=== PATIENT | female | born 1970 | race Caucasian/White ===

== ENCOUNTER 2018-01-20 19:44 | Inpatient (IN) | payer SELFPAY ==
[2018-01-20 20:20] LABS: Absolute Lymphocytes (CBC) 4.4 K/uL (0.7-4.9); Absolute Monocytes 1.3 K/uL (0.1-1.3); Absolute Neutrophil 8.7 K/uL (1.8-8.0); Basophils % 0.5 % (0-1.3); Hematocrit 32.6 % (36.0-45.0); Lymphocytes % 30.4 % (15.3-44.8); MCH 30.4 pg (27.0-35.0); MCV 92.7 fL (80-100); MPV 8.3 fL (7.6-11.3); Monocytes % 8.8 % (3.3-12.3); RBC Red Blood Cell Count 3.52 M/uL (3.86-4.86)
[2018-01-20 20:23] LABS: Protime INR 0.99
--- NOTE | 2018-01-20 20:39 | RAD REPORT ---
EXAM DESCRIPTION: CT - Head Brain Wo Cont - 01/20/2018 8:33 pm CLINICAL HISTORY: Declining state;Confused Drowsiness COMPARISON: No comparisons TECHNIQUE: All CT scans are performed using dose optimization technique as appropriate and may inclu de automated exposure control or mA/KV adjustment according to patient size. FINDINGS: No intracranial hemorrhage, hydrocephalus or extra-axial fluid collection.No areas of brai n edema or evidence of midline shift. The paranasal sinuses and mastoids are clear. The calvarium is intact. IMPRESSION: No acute intracranial abnormality.
[2018-01-20 20:42] LABS: ALT/SGPT 25 U/L (12-78); AST/SGOT 17 U/L (15-37); Albumin 3.6 g/dL (3.4-5.0); Alkaline Phosphatase 84 U/L (45-117); BUN Blood Urea Nitrogen 12 mg/dL (7-18); Bicarbonate 26 mmol/L (21-32); Bilirubin Direct < 0.1 mg/dL (0-0.2); Bilirubin Total 0.3 mg/dL (0.2-1.0); Glucose Level 136 mg/dL (74-106); Lipase 282 U/L (73-393); Magnesium 1.9 mg/dL (1.8-2.4); NT PRO-BNP 21 pg/mL (<125); Potassium 4.5 mmol/L (3.5-5.1); Protein, Total 6.9 g/dL (6.4-8.2); Sodium Level 137 mmol/L (136-145); Troponin (Emerg Dept Use Only) < 0.02 ng/mL (0.0-0.045)
--- NOTE | 2018-01-20 20:46 | RAD REPORT ---
EXAM DESCRIPTION: RAD - Chest Single View - 01/20/2018 8:41 pm CLINICAL HISTORY: COUGH Chest pain. COMPARISON: No comparisons FINDINGS: Portable technique limits examination quality. The lungs are underinflated resulting in vascular crowding. The heart is normal in size. No displaced fractures. IMPRESSION: Underinflated lungs.
[2018-01-20 21:02] LABS: Barbiturates POSITIVE (NEGATIVE); Benzodiazepines NEGATIVE (NEGATIVE); Cocaine NEGATIVE (NEGATIVE); METHAMPHETAM NEGATIVE (NEGATIVE); Methadone NEGATIVE (NEGATIVE); Opiates NEGATIVE (NEGATIVE); Phencyclidine POSITIVE (NEGATIVE); THC Cannibis NEGATIVE (NEGATIVE)
[2018-01-20] MEDS ORDERED: NA CHLORIDE 0.9% 1,000 ML ONE (21:02)
[2018-01-20] MEDS ORDERED: THIAMINE 200 MG/2 ML INJ ONE (21:02)
[2018-01-20 21:04] LABS: Urine Blood NEGATIVE (NEG); Urine Glucose NEGATIVE (NEG); Urine Protein NEGATIVE (NEG); Urine Specific Gravity 1.015 (1.005-1.030)
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
--- NOTE | 2018-01-20 21:17 | EDPHYS ---
Physician Documentation [facility] Name: Camilla Mcintyre Age: 47 yrs Sex: Female : 1970 Arrival Date: 01/20/2018 Time: 19:48 Bed 3 Private MD: ED Physician Justin Blum HPI: 01/20 20:05 This 47 yrs old Female presents to ER via Unassigned with complaints of jacy Unresponsive. 20:05 overdose. The patient presents with decreased responsiveness. Onset: The jacy symptoms/episode began/occurred just prior to arrival. Possible causes: drug use. Associated signs and symptoms: The patient has no apparent associated signs or symptoms. Patient's baseline: Neuro:. Severity of symptoms: At their worst the symptoms were mild in the emergency department the symptoms are unchanged. THROUGH OPERATOR: 21:57 LMP N/A - pt unresponsive unable to answer question ea - Immunization history:: Adult Immunizations unknown. - Social history:: Smoking status: unknown. - Family history:: not pertinent. - Ebola Screening: : Unable to complete screening because. ROS: 20:05 Constitutional: Negative for fever, chills, and weight loss, Eyes: Negative for injury, jacy pain, redness, and discharge, ENT: Negative for injury, pain, and discharge, Neck: Negative for injury, pain, and swelling, Cardiovascular: Negative for chest pain, palpitations, and edema, Respiratory: Negative for shortness of breath, cough, wheezing, and pleuritic chest pain, Abdomen/GI: Negative for abdominal pain, nausea, vomiting, diarrhea, and constipation, Back: Negative for injury and pain, : Negative for injury, bleeding, discharge, and swelling, MS/Extremity: Negative for injury and deformity, Skin: Negative for injury, rash, and discoloration, Psych: Negative for depression, anxiety, suicide ideation, homicidal ideation, and hallucinations, Allergy/Immunology: Negative for hives, rash, and allergies, Endocrine: Negative for neck swelling, polydipsia, polyuria, polyphagia, and marked weight changes, Hematologic/Lymphatic: Negative for swollen nodes, abnormal bleeding, and unusual bruising. 20:05 Neuro: Positive for altered mental status. Exam: 20:05 Constitutional: This is a well developed, well nourished patient who is awake, alert, jacy and in no acute distress. Head/Face: Normocephalic, atraumatic. Eyes: Pupils equal round and reactive to light, extra-ocular motions intact. Lids and lashes normal. Conjunctiva and sclera are non-icteric and not injected. Cornea within normal limits. Periorbital areas with no swelling, redness, or edema. ENT: Nares patent. No nasal discharge, no septal abnormalities noted. Tympanic membranes are normal and external auditory canals are clear. Oropharynx with no redness, swelling, or masses, exudates, or evidence of obstruction, uvula midline. Mucous membranes moist. Neck: Trachea midline, no thyromegaly or masses palpated, and no cervical lymphadenopathy. Supple, full range of motion without nuchal rigidity, or vertebral point tenderness. No Meningismus. Chest/axilla: Normal chest wall appearance and motion. Nontender with no deformity. No lesions are appreciated. Cardiovascular: Regular rate and rhythm with a normal S1 and S2. No gallops, murmurs, or rubs. Normal PMI, no JVD. No pulse deficits. Respiratory: Lungs have equal breath sounds bilaterally, clear to auscultation and percussion. No rales, rhonchi or wheezes noted. No increased work of breathing, no retractions or nasal flaring. Abdomen/GI: Soft, non-tender, with normal bowel sounds. No distension or tympany. No guarding or rebound. No evidence of tenderness throughout. Back: No spinal tenderness. No costovertebral tenderness. Full range of motion. Female : Normal external genitalia. Skin: Warm, dry with normal turgor. Normal color with no rashes, no lesions, and no evidence of cellulitis. MS/ Extremity: Pulses equal, no cyanosis. Neurovascular intact. Full, normal range of motion. Psych: Awake, alert, with orientation to person, place and time. Behavior, mood, and affect are within normal limits. 20:05 Neuro: Orientation: unable to test, Mentation: slow to respond, confused, Memory: unable to test, Cranial nerves: grossly normal, Motor: moves all fours, Gait: not tested. seizure activity, is not displayed by the patient. Vital Signs: 19:50 BP 109 / 74; Pulse 79; Resp 16; Temp 97.6(TE); Pulse Ox 95% on R/A; Weight 88.9 kg; ea Height 5 ft. 2 in. (157.48 cm); 21:21 BP 102 / 71; Pulse 77; Resp 16; Pulse Ox 97% on R/A; mt 22:39 BP 104 / 72; Pulse 74; Resp 16; Pulse Ox 98% on R/A; mt 23:30 BP 108 / 73; Pulse 80; Resp 17; Temp 97.8; Pulse Ox 100% ; 01/21 00:35 BP 102 / 64; Pulse 79; Resp 16; Temp 97.6(TE); Pulse Ox 99% on 2 lpm NC; 01/20 19:50 Body Mass Index 35.85 (88.90 kg, 157.48 cm) ea MDM: 01/20 20:00 Patient medically screened. [facility] 20:09 Data reviewed: vital signs, nurses notes, lab test result(s), EKG, radiologic studies, [facility] CT scan, plain films. 01/20 20:03 Order name: Basic Metabolic Panel [facility] 01/20 20:03 Order name: CBC with Diff; Complete Time: 21:11 [facility] 01/20 20:03 Order name: LFT's; Complete Time: 21:11 [facility] 01/20 20:03 Order name: Magnesium; Complete Time: 21:11 [facility] 01/20 20:03 Order name: NT PRO-BNP; Complete Time: 21:11 [facility] 01/20 20:03 Order name: PT-INR; Complete Time: 21:11 [facility] 01/20 20:03 Order name: Troponin (emerg Dept Use Only); Complete Time: 21:11 [facility] 01/20 20:03 Order name: Acetaminophen; Complete Time: 21:11 [facility] 01/20 20:03 Order name: ETOH Level; Complete Time: 21:11 [facility] 01/20 20:03 Order name: Ptt, Activated; Complete Time: 21:11 [facility] 01/20 20:03 Order name: Salicylate; Complete Time: 21:11 [facility] 01/20 20:03 Order name: Urine Drug Screen; Complete Time: 21:11 [facility] 01/20 20:03 Order name: Lipase; Complete Time: 21:11 [facility] 01/20 20:05 Order name: Basic Metabolic Panel; Complete Time: 21:11 EDMS 01/20 20:03 Order name: XRAY Chest (1 view); Complete Time: 21:11 [facility] 01/20 20:03 Order name: EKG; Complete Time: 20:05 [facility] 01/20 20:03 Order name: Cardiac monitoring; Complete Time: 22:00 [facility] 01/20 20:03 Order name: EKG - Nurse/Tech; Complete Time: 22:00 [facility] 01/20 20:03 Order name: IV Saline Lock; Complete Time: 22:00 [facility] 01/20 20:03 Order name: Labs collected and sent; Complete Time: 22:00 [facility] 01/20 20:03 Order name: O2 Per Protocol; Complete Time: 22:12 [facility] 01/20 20:03 Order name: O2 Sat Monitoring; Complete Time: 22:13 [facility] 01/20 20:03 Order name: Urine Dipstick-Ancillary (obtain specimen); Complete Time: 00:33 [facility] 01/20 20:03 Order name: CT Head Brain wo Cont; Complete Time: 21:11 [facility] 01/20 20:03 Order name: Jeffery; Complete Time: 21:50 [facility] 01/20 20:23 Order name: Urine Dipstick--Ancillary (enter results) tx 01/20 20:25 Order name: Urine Dipstick-Ancillary [facility] 01/20 20:10 Order name: Blood Glucose Level; Complete Time: 22:08 [facility] Administered Medications: 20:30 Drug: NS 0.9% 1000 ml Route: IV; Rate: 1 bolus; Site: right antecubital; ea 22:30 Follow up: Response: No adverse reaction; IV Status: Completed infusion ea 20:30 Drug: Thiamine 100 mg Route: IV; Rate: bolus; Site: right antecubital; ea 21:00 Follow up: Response: No adverse reaction; IV Status: Completed infusion ea Disposition: 01/20/18 21:16 Hospitalization ordered by Ismael Butler for Inpatient Admission. Preliminary diagnosis are Abuse of non-psychoactive substances, Altered mental status, unspecified. - Bed requested for Intensive Care Unit. - Status is Inpatient Admission. ea - Condition is Stable. - Problem is new. - Symptoms have improved. UTI on Admission? No Signatures: Dispatcher [employer] Meagan Larsen RN RN kl Anderson, Corey, MD MD cha Antunez, Elena, RN RN ea Corrections: (The following items were deleted from the chart) 23:11 21:16 Hospitalization Ordered by Ismael Butler MD for Inpatient Admission. Preliminary oniel diagnosis is Abuse of non-psychoactive substances; Altered mental status, unspecified. Bed requested for Intensive Care Unit. Status is Inpatient Admission. Condition is Stable. Problem is new. Symptoms have improved. UTI on Admission? No. jacy 23:39 20:03 NG Tube ordered. jacy ea 01/21 01:44 01/20 23:11 01/20/2018 21:16 Hospitalization Ordered by Ismael Butler MD for Inpatient ea Admission. Preliminary diagnosis is Abuse of non-psychoactive substances; Altered mental status, unspecified. Bed requested for Intensive Care Unit. Status is Inpatient Admission. Condition is Stable. Problem is new. Symptoms have improved. UTI on Admission? No. kl
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
[2018-01-21] MEDS ORDERED: ONDANSETRON 4 MG/2 ML VIAL IV PRN (01:15)
[2018-01-21] MEDS ORDERED: ACETAMINOPHEN 500 MG TAB PO PRN (01:15)
[2018-01-21] MEDS ORDERED: IPRATROPIUM BROM 0.5MG/2.5ML NEB PRN (01:15)
[2018-01-21] MEDS ORDERED: ALBUTEROL 2.5 MG/3 ML NEB SOL NEB PRN (01:15)
[2018-01-21] MEDS: NA CHLORIDE 0.9% 1,000 ML IV SCH ×2 (02:11→09:15)
[2018-01-21 06:53] LABS: Absolute Lymphocytes (CBC) 2.9 K/uL (0.7-4.9); Absolute Monocytes 0.9 K/uL (0.1-1.3); Absolute Neutrophil 11.4 K/uL (1.8-8.0); Basophils % 0.3 % (0-1.3); Eosinophils % 0.4 % (0-4.4); MCH 30.8 pg (27.0-35.0); MPV 8.3 fL (7.6-11.3); RBC Red Blood Cell Count 4.24 M/uL (3.86-4.86)
[2018-01-21 07:05] LABS: BUN Blood Urea Nitrogen 7 mg/dL (7-18); Bicarbonate 27 mmol/L (21-32); Glucose Level 106 mg/dL (74-106); Potassium 4.3 mmol/L (3.5-5.1); Sodium Level 143 mmol/L (136-145)
--- NOTE | 2018-01-21 07:43 | EKG ---
Test Date: 2018-01-20 Test Time: 19:47:11 Service Desk Technician: FEI MEASUREMENT RESULTS: Intervals: Rate: 79 CT: 202 QRSD: 108 QT: 394 QTc: 451 [place]: P: 58 CT: 202 QRS: 19 T: 50 INTERPRETIVE STATEMENTS: Normal sinus rhythm Possible Left atrial enlargement Incomplete right bundle branch block Borderline ECG No previous ECG available for comparison Electronically Signed On 01-21-18 07:42:43 [employer] by Phil Boss
[2018-01-21] MEDS: ENOXAPARIN 40 MG/0.4 ML SQ SCH (08:29)
[2018-01-21] MEDS ORDERED: DICYCLOMINE HCL 10 MG CAP PO PRN (12:52)
[2018-01-21] MEDS ORDERED: GLUCAGON 1 MG/VIAL IM PRN (14:06)
[2018-01-21] MEDS ORDERED: D50W 25 GM/50 ML SYRINGE IV PRN (14:06)
--- NOTE | 2018-01-21 14:51 | P.PN ---
Subjective Date of Service: 01/21/18 Chief Complaint: Acute encephalopathy PATIENT SEEN AND EXAMINED AT BEDSIDE WITH RN. CHART REVIEWED. CASE DISCUSSED WITH PATIENT AT BEDSIDE. OVERNIGHT NO COMPLAINTS TO OFFER. HAS BEEN DOING WELL OVERALL. Review of Systems 10-point ROS is otherwise unremarkable Physical Examination - Vital Signs Temperature: 97.2 F Blood Pressure: 132/80 Pulse: 100 Respirations: 17 Pulse Ox (%): 98 - Physical Exam General: Alert, In no apparent distress HEENT: Atraumatic, PERRLA, EOMI Neck: Supple, JVD not distended Respiratory: Clear to auscultation bilaterally, Normal air movement Cardiovascular: Regular rate/rhythm, Normal S1 S2 Gastrointestinal: Normal bowel sounds, No tenderness Musculoskeletal: No tenderness Integumentary: No rashes Neurological: Normal speech, Normal tone, Normal affect Lymphatics: No axilla or inguinal lymphadenopathy - Studies Laboratory Data (last 24 hrs) 01/20/18 19:50: PT 11.7, INR 0.99, APTT 31.7 01/20/18 19:50: WBC 14.6 H, Hgb 10.7 L, Hct 32.6 L, Plt Count 265 01/20/18 19:50: Sodium 137, Potassium 4.5, BUN 12, Creatinine 0.80, Glucose 136 H, Magnesium 1.9, Total Bilirubin 0.3, AST 17, ALT 25, Alkaline Phosphatase 84, Lipase 282 Medications List Reviewed: Yes Assessment And Plan - Current Problems (Diagnosis) (1) Drug overdose Onset Date: 01/21/18 Current Visit: Yes Status: Acute Plan: Unintentional drug overdose. Patient took Ativan, promethazine, Seroquel, Xanax for pain and anxiety and had altered mental status and was found in her car by the EMS -Will monitor closely for 24-48 hr. -poison control called and notified about the overdose. -transferred to the floor at this time Qualifiers: Encounter type: initial encounter Injury intent: undetermined intent Qualified Code(s): T50.904A - Poisoning by unspecified drugs, medicaments and biological substances, undetermined, initial encounter - Plan Transfer to the floor at this time. Observe for another 24-48 hr for any adverse effect of the overdose medication. Anticipate discharge soon. Patient educated extensively regarding the plan of care is well. Discharge Plan: Home Plan to discharge in: 24 Hours - Code Status/Comfort Care Code Status Assessed: Yes Critical Care: No
[2018-01-21] MEDS: INSULIN -REGULAR HUMAN 50 UNIT/0.5 ML ML IV SCH ×2 (16:30→20:06)
[2018-01-21] MEDS: CARVEDILOL 12.5 MG TAB PO SCH (20:05)
[2018-01-22] MEDS: INSULIN -REGULAR HUMAN 50 UNIT/0.5 ML ML IV SCH ×2 (07:30→11:28)
[2018-01-22] MEDS: ENOXAPARIN 40 MG/0.4 ML SQ SCH (08:11)
[2018-01-22] MEDS: CARVEDILOL 12.5 MG TAB PO SCH (08:11)
[2018-01-22] MEDS ORDERED: LOSARTAN POTASSIUM 50 MG TABLET PO SCH (09:00)
[2018-01-22] MEDS ORDERED: AMLODIPINE 5 MG TAB PO SCH (09:00)
--- NOTE | 2018-01-22 10:11 | P.SSS ---
Patient History Date of Service: 01/22/18 Reason for admission: Acute encephalopathy History of Present Illness: Ms [place]inty[place] woman who was found in a vehicle [place] a ditch by the customs and border protection officer. Her mentation was altered, EMS was called, they found a bottle of Xanax in the vehicle. The patient received Narcan, but did not change her mentation. When the patient arrived to ED, she was alert and oriented x1, then gravelly, the patient became more obtunded difficult to arouse. Lab work remarkable for leukocytosis, she is a febrile, CT head showed no acute abnormalities, chest-x-ray no acute abnormalities either. Toxicology screen was positive for barbiturates PCP. Allergies Sulfa (Sulfonamide Antibiotics) Allergy (Verified 01/21/18 02:31) Hives Home Medications: Amlodipine [Norvasc*] 5 mg PO DAILY 01/21/18 Butalb/Acetaminophen/Caffeine [Fioricet 50-300-40 mg Capsule] 1 cap PO BID PRN 01/21/18 Carvedilol 12.5 mg PO BID 01/21/18 Cyclobenzaprine [Flexeril*] 10 mg PO TID PRN 01/21/18 Dicyclomine [Bentyl*] 10 mg PO BID PRN 01/21/18 LORazepam [Ativan*] 1 mg PO TID PRN 01/21/18 Liraglutide [Victoza 2-Wally] 1.8 mg SQ DAILY 01/21/18 Losartan Potassium 50 mg PO DAILY 01/21/18 Metformin HCl 500 mg PO BID 01/21/18 Promethazine HCl 25 mg PO BID PRN 01/21/18 Quetiapine Fumarate [Seroquel] 50 mg PO BEDTIME 01/21/18 Zolpidem Tartrate [Ambien] 10 mg PO BEDTIME 01/21/18 lamoTRIgine [Lamictal*] 25 mg PO BID 01/21/18 - Past Medical/Surgical History Diabetic: Yes -: bipolar -: major depression disorder -: previous suicidal thoughts -: hypertension -: NIDDM -: cholecystecomy - Family History Family History: Reviewed- Non-Contributory - Family History Father -: Hypertension - Social History Smoking Status: Unknown if ever smoked Alcohol use: Yes CD- Drugs: No Caffeine use: No Place of Residence: Home Review of Systems 10-point ROS is otherwise unremarkable Physical Examination - Vital Signs Temperature: 97.5 F Blood Pressure: 136/72 Pulse: 91 Respirations: 16 Pulse Ox (%): 99 - Physical Exam General: Alert, In no apparent distress HEENT: Atraumatic, PERRLA, Mucous membr. moist/pink, EOMI, Sclerae nonicteric Neck: Supple, 2+ carotid pulse no bruit, No LAD, Without JVD or thyroid abnormality Respiratory: Clear to auscultation bilaterally, Normal air movement Cardiovascular: Regular rate/rhythm, Normal S1 S2 Gastrointestinal: Normal bowel sounds, No tenderness Musculoskeletal: No tenderness Integumentary: No rashes Neurological: Normal gait, Normal speech, Normal strength at 5/5 x4 extr, Normal tone, Normal affect Lymphatics: No axilla or inguinal lymphadenopathy - Diagnosis (Problem(s)) (1) Drug overdose Onset Date: 01/21/18 Current Visit: Yes Status: Acute Qualifiers: Encounter type: initial encounter Injury intent: undetermined intent Qualified Code(s): T50.904A - Poisoning by unspecified drugs, medicaments and biological substances, undetermined, initial encounter Treatment Summary: Unintentional drug overdose. Patient found to be altered. IV fluids and monitor for 24-48 hr. Without any complications. Poison control contacted. Advised the patient to be safely discharged home. Patient to be discharged home today and to follow up with primary care provider about 1-2 days post discharge. Adjustments made to her medications. Past is hold taking the Ativan and Xanax at this time until being seen by primary care provider. Patient demonstrated understanding and thus discharged home under stable condition - Disposition Disposition: ROUTINE DISCHARGE Condition: GOOD Diet: ADA Activity: Ad carlota
== END 2018-01-22 11:38 | disposition home or self-care (01) | DRG 917 ==
LOC: ER 19:44 → ERHOLD 21:17 → 3RD-ICU 01-21 00:35 → 4TH 01-21 14:20
PROVIDERS: ADMIT Internal Medicine; ATTEND Internal Medicine
DX: T42.4X1A Poisoning by benzodiazepines, accidental (unintentional), initial encounter (principal); G92 Toxic encephalopathy; T43.3X1A Poisoning by phenothiazine antipsychotics and neuroleptics, accidental (unintentional), initial encounter; T43.591A Poisoning by other antipsychotics and neuroleptics, accidental (unintentional), initial encounter; Y92.410 Unspecified street and highway as the place of occurrence of the external cause
CPT/HCPCS: 36415; 51702; 70450; 71045; 80048; 80076; 80307; 80320; 80329; 81003; 82962; 83690; 83735; 83880; 84484; 85025; 85610; 85730; 93005; 94760; 96361; 96365; 99285; J1650; J3411; J7030